=== PATIENT | male | born 1965 | race Caucasian/White ===

== ENCOUNTER 2022-08-08 08:35 | Day surgery (SDC) | payer BC ==
[~2022-08-08] VITALS: Ht 177.8 cm; Wt 71.9 kg
[~2022-08-08 08:35] MED LIST: NAPR220; OMEP20ER; OMEPRAZOLE MAGN20 MG PO; Percocet 10-321 EACH PO; Zantac150 MG PO; Zofran8 MG PO
[2022-08-08] MEDS ORDERED: EUTHYROX100 MCG PO (08:56)
[2022-08-08] MEDS ORDERED: Prinivil10 MG PO (08:56)
--- NOTE | 2022-08-08 10:41 | NUR ---
08/08/22 1041 Tiesha Galvez LATE ENTRY PT REFUSED MULTIPLE OFFERS OF PO FLUIDS
== END 2022-08-08 10:20 | disposition home or self-care (01) ==
LOC: ORSCSDS 08:35 → ORSCMMR 10:00 → ORSCSDS 10:00 → ORD 10:00 → ORSCSDS 10:20
PROVIDERS: Internal Medicine Gastroenterology
PROC: 0DBN8ZX Excision of Sigmoid Colon, Via Natural or Artificial Opening Endoscopic, Diagnostic (ICD-10-PCS; principal; 2022-08-08 10:00)
DX: Z12.11 Encounter for screening for malignant neoplasm of colon (principal); Z86.010 Personal history of colon polyps; D12.5 Benign neoplasm of sigmoid colon; K64.8 Other hemorrhoids; E03.9 Hypothyroidism, unspecified; I10 Essential (primary) hypertension; F17.210 Nicotine dependence, cigarettes, uncomplicated; Z79.899 Other long term (current) drug therapy
CPT/HCPCS: 88305; J2704; J7120